=== PATIENT | female | born 1940 | race Caucasian/White ===

== ENCOUNTER 2017-07-08 07:30 | Day surgery (SDC) | payer MEDICARE, SELFPAY ==
[2017-06-25 15:13] VITALS: BMI 26.9
--- NOTE | 2017-07-08 | DI.US.S_ITS ---
ULTRASOUND GUIDED WIRE LOCALIZATION RIGHT BREAST WITH POST DIGITAL MAMMOGRAPHIC AND ULTRASOUND IMAGIN07/08/2017 CLINICAL: Pre-op wire localization. Correlation is made to exams dated: 06/15/2017 breast MRI, 05/22/2017 ultrasound biopsy, 05/22/2017 ultrasound biopsy, 05/22/2017 mammogram, and 05/06/2017 ultrasound [facility]. A wire localization using ultrasound guidance was performed for the marker clip located in the right breast at 2 o'clock anterior depth. This was described on the previous ultrasound report. The skin was prepped in the usual manner. Local anesthetic was administered to the access site. The localization was approached from the lateral aspect. A J-hook wire was inserted into the targeted area under ultrasound guidance. Post placement digital mammographic and ultrasound imaging was obtained. IMPRESSION: WIRE LOCALIZATION Wire localization for the marker clip in the right breast at 2 o'clock anterior depth was successful. This exam was interpreted at Station ID: [id number]. Luis F berry/:07/08/2017 10:18:08
--- NOTE | 2017-07-08 | PATH_ITS ---
[facility] Accession Number: [id number] . 01 Material submitted: . PART A: RIGHT BREAST SENTINEL NODES PART B: RIGHT BREAST PART C: RIGHT BREAST PART D: RIGHT BREAST PART E: RIGHT BREAST PART F: RIGHT BREAST . 02 Diagnosis: A. Right Breast, Clyman Nodes: Two lymph nodes negative for metastatic carcinoma. Biopsy site changes are present. Please see CAP summary data below. . B. Right Breast, Lumpectomy: Benign breast tissue. No evidence of atypical hyperplasia, in situ or invasive carcinoma. . C. Right Breast, Additional Posterior Margin: Benign breast tissue. Negative for atypical hyperplasia, in situ or invasive carcinoma. . D. Right Breast, Additional Inferior Margin: Benign breast tissue. Negative for atypical hyperplasia, in situ or invasive carcinoma. . E. Right Breast, Additional Superior Margin: Invasive ductal carcinoma. Please see CAP summary data below. . F. Right Breast, Additional Medial Margin: Benign breast tissue. Negative for atypical hyperplasia, in situ or invasive carcinoma. . CAP CANCER CASE SUMMARY: . PROCEDURE: Excision. SPECIMEN LATERALITY: Right. TUMOR SITE: Position 2 o'clock. TUMOR SIZE: 4 mm greatest dimension. . HISTOLOGIC TYPE: Invasive carcinoma of no special type (ductal, not otherwise specified). HISTOLOGIC GRADE: PAT HISTOLOGIC SCORE Glandular/Tubular differentiation: Score 2. Nuclear Pleomorphism: Score 2. Mitotic Rate: Score 1. Overall Grade: Grade 1. TUMOR FOCALITY: Single focus of invasive carcinoma. . DUCTAL CARCINOMA IN SITU: Not identified. . LOBULAR CARCINOMA IN SITU: No LCIS in specimen. . MARGINS: INVASIVE CARCINOMA MARGINS: Anterior: Positive for invasive carcinoma, 1 mm extent. Posterior: Negative, 5 mm. Superior: Negative, Greater than 10 mm. Inferior: Negative, Greater than 10 mm. Medial: Negative, Greater than 10 mm. Lateral: Negative, Greater than 10 mm. . . REGIONAL LYMPH NODES: Uninvolved by tumor cells. Number of Lymph Nodes Examined: 2. Number of Clyman Lymph Nodes Examined: 2. . TREATMENT EFFECT: No known presurgical therapy. . LYMPHOVASCULAR INVASION: Not identified. DERMAL LYMPHOVASCULAR INVASION: No skin present. . PATHOLOGIC STAGE CLASSIFICATION (AJCC 8th Edition, 2017) Primary Tumor: pT1a Regional Lymph Nodes: pN0(sn) . ADDITIONAL PATHOLOGIC FINDINGS: Specify: Biopsy site changes present in breast and lymph node. . MICROCALCIFICATIONS: Not identified. . ANCILLARY STUDIES: Prognostic markers performed previously on case [id number]: Estrogen Receptor (SP1): Strong positive, greater than 99%. Progesterone Receptor (1E2): Intermediate positive, approximately 50%. . HER2 (4B5), performed on the current specimen: Negative (Score 1+). I/07/14/2017 . 02 Electronically signed: . Stacie Ybarra MD, Pathologist NPI- [id number] . 01 Gross description: . A. The specimen is received in a container of formalin labeled with the patient's name and designated right breast sentinel node. The specimen consists of two rubbery pink-garcia lymph nodes covered with fat, the first measuring 1.5 x 1.3 x 0.6 cm and 2.7 x 1.5 x 1.3 cm. Sectioning of the larger lymph node reveals a third lymph node measuring 0.9 x 0.7 x 0.5 cm. The cut surfaces of all three lymph nodes are yellow-garcia and fatty with a narrow rim of outer pink-garcia tissue. The specimen is entirely submitted as A1 single lymph node; A2 single lymph node; A3-A4 one single node serially sectioned in two cassettes; A5 fat from lymph nodes. B. The specimen is received in a container of formalin labeled with the patient's name and designated breast lumpectomy with margins, short stitch superior, long stitch lateral, guidewire anterior margin. The specimen consists of a yellow-garcia fibrofatty lumpectomy. The specimen is oriented by sutures and guidewire as follows: long stitch lateral, short stitch superior, guidewire anterior. The superior margin will be painted with blue ink. The anterior margin will be painted with orange ink. The lateral margin will be painted with yellow ink. The posterior margin will be painted with black ink. The medial margin will be painted with red ink. The inferior margin will be painted with green ink. The specimen will be serially sectioned from anterior to posterior. Sectioning reveals a possible ill-defined 0.6 x 0.4 x 0.3 cm biopsy cavity, which appears to be closest to the lateral inferior medial margin. The margins are within 0.5-0.7 cm of the biopsy cavity. No residual tumor is grossly noted. The specimen consists of mostly yellow-garcia fatty tissue with a scant amount of fibrous tissue with a ratio of 98% fat and 2% fibrous breast tissue. The specimen is entirely submitted anterior to posterior in cassettes B1-B16 (cassette B13 possible biopsy site). Note to pathologist: entirely submitted because of ill-defined biopsy site. Fixation time less than 48 hours. C. The specimen is received in a container of formalin labeled with the patient's name and designated right breast lumpectomy, short stitch superior, long stitch lateral, double additional posterior margin. The specimen consists of an 11.5 grams, 4.5 x 3.5 x 1.5 cm, yellow-garcia lumpectomy specimen orientede by sutures, short superior, long lateral long lateral, double posterior margin. The superior margin is painted with blue ink. The anterior margin is painted with orange ink. The medial margin is painted with red ink. The lateral margin is painted with yellow ink. The inferior margin is painted with green ink. The posterior margin is painted with black ink. The specimen is serially sectioned from superior to inferior margin. Serial sections reveal a moderate amount of bright yellow lobulated fat with interlacing bands of white-garcia fibrous breast tissue with a ratio of 98% fat and 2% fibrous breast tissue. No other cysts or nodules are grossly noted. The specimen is entirely submitted from superior to inferior in cassette C1 through C15. D. The specimen is received in a container of formalin labeled with the patient's name and designated right breast lumpectomy, short stitch superior, long stitch lateral, double stitch additional inferior margin. The specimen consists of a bright yellow-garcia fibrofatty lumpectomy specimen oriented by sutures, short suture superior, long lateral, double stitch inferior margin. The specimen consists of a 5.0 x 3.5 x 1.0 cm yellow-garcia fibrofatty lumpectomy specimen. There is a small amount of muscle near the inferior deep margin. The lumpectomy specimen weighs 8.5 grams. The superior margin is painted with blue ink. The specimen is serially sectioned from superior to inferior Sectioning reveal a moderate amount of bright yellow lobulated fat with interlacing bands of white-garcia fibrous breast tissue with a ratio of 98% fat and 2% fibrous breast tissue. No distinct cysts or nodules are grossly noted. The specimen is entirely submitted superior to inferior as D1 through D12. E. The specimen is received in a container of formalin labeled with the patient's name and designated right breast lumpectomy tissue, short stitch superior, long lateral, and double stitch additional superior margin. The specimen consists of a yellow-garcia fibrofatty lumpectomy specimen made oriented by sutures, short stitch superior, long lateral and double stitch. The specimen consists of a 4.0 x 3.5 x 1.3 cm yellow-garcia fibrofatty lumpectomy specimen. The specimen weighs 8 grams. The superior margin will be painted with blue ink. The lateral margin will be painted with yellow ink. The anterior margin will be painted with orange ink. The inferior margin will be painted with green ink. The medial margin will be painted with red ink. The posterior margin will be painted with black ink. The specimen will be serially sectioned from medial to lateral. Sectioning reveals a moderate amount of bright yellow lobulated fat with interlacing bands of white-garcia fibrous breast tissue, with a ratio of 98% fat and 2% fibrous breast tissue. No distinct cysts or nodules are grossly noted. The specimen is entirely submitted medial to lateral in cassette E1 through E9. F. The specimen is received in a container of formalin labeled with the patient's name and designated right breast lumpectomy, short stitch superior, long=lateral, double=additional medial tissue. The specimen consists of a 6 gram, 3.2 x 2.5 x 1.1 cm yellow-garcia fibrofatty lumpectomy specimen oriented by sutures. The superior margin will be painted with blue ink. The posterior deep margin will be painted with black ink. The anterior margin will be painted with orange ink. The lateral margin will be painted with yellow ink. The medial margin will be painted with red ink. The inferior margin will be painted with green ink. The specimen is serially sectioned from superior to inferior. Sectioning reveals a moderate amount of bright yellow lobulated fat with interlacing bands of white-garcia fibrous breast tissue with a ratio of 98% fat and 2% fibrous breast tissue. No distinct cysts or nodules are grossly noted. The specimen is entirely submitted in cassettes F1 through F7, superior to inferior. (CW:[id number]) /[facility] . 02 Microscopic: . Immunohistochemical stains were performed to characterize the cells of interest. All control stains showed appropriate reactivity. . RESULTS: Blocks A1, A3, A4: Cytokeratin ERIN: Negative in all three blocks. . Block E3: HER2 (4B5): Negative (Score 1+). . INTERPRETATION: The lymph node sections are negative for micrometastasis by IHC. . TECHNICAL NOTE: The scoring criteria for breast biomarkers by immunohistochemistry is based on the current ASCO/CAP guidelines (Sharon et al, Arch Pathol Lab Med 2010: 134(6): 907-922 / Jenifer PEDRAZA et al, Arch Pathol Lab Med 2014: 138(2): 241-256). Deparaffinized sections of formalin fixed tissue (along with appropriate positive controls) are incubated with the above antibody(s). Using the automated Rivanna stainer, tissue is incubated with the designated antibody* which is then localized by a non-biotin, dual polymer detection system. The external controls are reviewed for appropriate reactivity and found to be adequate. Results on the target cell population are indicated above. These tests have not been validated on decalcified tissue. * This test was developed and its performance characteristics determined by [facility]. It has not been cleared or approved by the U.S. Food and Drug Administration. The FDA has determined that such clearance or approval is not necessary. This test is used for clinical purposes. It should not be regarded as investigational or for research. . 02 Pathologist provided ICD-10: C50.911 . 02 CPT . 574195, 163788, 348920, 408275, 504113, 101282, X35800 Performed at: 01 [facility] [address] [facility], [place], [place] [id number] MD Obed Calvillo MD Phone: [phone] Performed at: 02 [facility] [address] [place] [id number] MD Michael Hunter MD Phone: [phone]
--- NOTE | 2017-07-08 | DI.MG.S_ITS ---
SPECIMEN: 07/08/2017 CLINICAL: Right breast cancer. Correlation is made to exam dated: 07/08/2017 [facility]. Four surgical specimens were submitted. The first contained the localizing wire. The fourth was in two parts, one of which contains the mass at B4-5 on the grid. The bx clip was not present an any of the specimens. IMPRESSION: SPECIMEN Surgical specimens did contain the mass lesion. The bx clip was not recovered. Calls were made to the OR after each specimen was reviewed. This exam was interpreted at Station ID: [id number]. Luis F berry/:07/08/2017 12:27:20
--- NOTE | 2017-07-08 | DI.MG.S_ITS ---
UNILATERAL RIGHT DIGITAL DIAGNOSTIC MAMMOGRAM POST-NEEDLE BIOPSY: 07/08/2017 CLINICAL: Right breast cancer. Comparison is made to exams dated: 06/15/2017 breast MRI, 05/22/2017 ultrasound biopsy, and 05/22/2017 mammogram - [facility]. The tissue of the right breast is heterogeneously dense. This may lower the sensitivity of mammography. There is a bx clip in the right breast at 2 o'clock anterior depth. A localizing wire is adjacent to the clip, 1 cm proximal to a small mass. IMPRESSION: KNOWN BIOPSY PROVEN MALIGNANCY The localization wire is present adjacent to the bx clip and 1 cm proximal to the residual mass. This exam was interpreted at Station ID: [id number]. NOTE: For mammograms, a report in lay terms will be sent to the patient. Approximately 15% of breast malignancies will not be visualized mammographically. In the management of a palpable breast mass, a negative mammogram must not discourage biopsy of a clinically suspicious lesion. Electronically Signed By: Luis F berry/:07/08/2017 09:48:15 ACR BI-RADS Category 6: Known biopsy proven malignancy [id number]
[2017-07-08 07:47] VITALS: BP 176/101; PULSE 63; RESP 17; TEMP 36.3; O2SAT 98; BMI 26.4
--- NOTE | 2017-07-08 08:00 | DI.NM.S_ITS ---
PROCEDURE: NM SENTINEL NODE W IMAGING RADIOPHARMACEUTICAL: 0.5-1.0 mCi Millipore filtered Tc-99m sulfur colloid. INDICATIONS: localization of sentinel node TECHNIQUE: The area around the nipple was prepped and draped in a sterile fashion. Tc-99m sulfur colloid was injected intra-dermally in the outer edge of the areola in the right breast. Images were obtained subsequently. A body contour outline was obtained. FINDINGS: There is/are a cluster lymph node(s) in the ipsilateral axilla, which is marked on the skin and the images for referring physician. IMPRESSION: Administration of radiotracer into the right breast periareolar region for intra-operative sentinel lymph node localization. Dictated by: Luis F Ga M.D. on 07/08/2017 at 9:31 Approved by: Luis F Ga M.D. on 07/08/2017 at 9:32
[2017-07-08] MEDS: LACTATED RINGERS 1,000 ML 42 ML IV (10:06)
--- NOTE | 2017-07-08 10:29 | PM.PREOP ---
Pre-operative Note Interval Note Pre-op Check: History & Physical Reviewed by Physician
[2017-07-08] MEDS: CEFAZOLIN 2 GM/100 ML FROZ.PIGGY IV (10:35)
[2017-07-08] MEDS: BUPIVACAINE 0.5% (PF) 30 ML VIAL INJ (11:10)
--- NOTE | 2017-07-08 11:21 | SUR.OPER ---
SENTNEL NODE COUNTS RECORDED 6044 AND 2ND COUNT 97081 AND GIVEN TO SURGEON.
--- NOTE | 2017-07-08 12:21 | PM.OP.1 ---
Operative Date/Time/Diagnoses - Date of procedure: 07/08/17 Time of procedure: 12:21 Post-op diagnosis: same Procedure & Clinicians Procedure: Right breast lumpectomy and sentinel node biopsy after needle localization and mapping Same procedure as scheduled: Yes Indications: Biopsy-proven right breast invasive malignancy Surgeon: Marie Perez Click Yes if Unassisted: Yes Anesthesia Type: General (Ahsaei) and Local Operative Notes Findings: Mass located in the superior extended margin portion. No clip identified Closure Type: primary Specimen(s): other (1. Lumpectomy with wire, 2. Posterior margin, 3. Inferior margin, 4. Superior margin, 5. Medial margin) Estimated Blood Loss (mL): 15 Blood products transfused: none Procedure in detail: After obtaining informed consent, the patient was brought to the operating room and placed in the supine position on the operating table. Following successful induction of general endotracheal anesthesia, appropriate padding of all bony prominences, and placement of appropriate monitors, the right chest and axilla were prepped and draped in the standard surgical fashion. A timeout was held per SCOAP protocol. 2.5 mLs of methylene blue were injected in the retroareolar space of the right breast. The breast was massaged for 5 minutes. We began with placement of a Port-A-Cath on the left side. A mixture of local anesthetics was infiltrated in the deltopectoral groove on the left side. The right subclavian vein was accessed via the Seldinger technique and a wire was gently placed into the vein. Fluoroscopy was used to verify position of the wire in the subclavian vein. We next created a pocket of approximately 2 cm inferior to the access site of the vein. This was checked for size and found to fit the port nicely. The included tunneling device was used to place the tubing and the pocket connecting it to the access site of the subclavian vein. The tubing was trimmed to an appropriate length and connected to the Port-A-Cath. The Port-A-Cath was sewn into place in the pocket using interrupted Prolene sutures. The pocket was closed in 2 layers. The dilator and introducer were then gently passed over the wire and into the subclavian vein. The wire and dilator were removed leaving only the introducer. The tubing was then placed in the introducer and the introducer removed per computer analyst's directions. The port was then flushed with saline solution and found to be functional and in good position. It was then hep-locked with 2000 units of heparin. We continued with a right sentinel node biopsy Following injection of a mixture of local anesthetics into the axillary fold on the right side, an incision was created and carried down through the skin and subcutaneous tissue to enter the axillary fat pad below. The sentinel node was identified with the help of the navigator. All afferent and efferent lymphatics and vasculature were ligated. The sentinel node was then liberated from the surrounding structures. It was noted to have a 10 second count of 6044. A 2nd sentinel node was identified just distal to the 1st with a 10 sec count of 17,212. The background in the axilla was less than 5 and background in the room was 0. The wound was carefully checked for hemostasis and aspirated free of all fluid and particulate matter. It was closed in 2 layers with Vicryl and Monocryl suture. We continued with lumpectomy on the right side. A curvilinear incision was created at the medial aspect of the right nipple-areolar complex. Using traction and counter-traction the mass and localizing wire carefully dissected free from the underlying muscle, and surrounding breast tissue. The mass was delivered into the field and marked appropriately. It was sent for specimen x-ray. The wound was checked for hemostasis and irrigated with water. The radiologist called back into the room noting that he did not see either the mass or the clip. Additional posterior, inferior, superior, and medial margins were all taken. The superior margin contained the mass but no clip was visualized in any of the tissue. The posterior margin was the pectoralis muscle with the fascia removed. Most of the upper inner quadrant of the right breast was removed. The wound was checked once again for hemostasis. It was irrigated copiously with warm water and aspirated free of all fluid. The wound was checked once again for hemostasis and then closed in layers with Vicryl Monocryl suture. Dermabond was applied to the skin incisions. Fluffs and a breast binder were applied. The patient tolerated the procedure very well. She was allowed to awaken from anesthesia and taken to the post-anesthesia care unit in good condition. Complications: none (No clip identified within the specimen) Condition: stable Disposition: PACU Plan for aftercare: 1. Discharge to home 2. Follow up with me in 2 weeks
[2017-07-08 12:27] VITALS: BP 144/77; PULSE 107; RESP 16; TEMP 35.7; O2SAT 95
[2017-07-08 12:32] VITALS: BP 118/76; PULSE 101; RESP 16; O2SAT 95
[2017-07-08 12:39] VITALS: BP 118/89; PULSE 92; RESP 15; O2SAT 97
[2017-07-08 12:43] VITALS: BP 125/91; PULSE 89; RESP 16; TEMP 36; O2SAT 96
[2017-07-08 13:10] VITALS: BP 143/83; PULSE 90; RESP 16; TEMP 36; O2SAT 97
[2017-07-27 14:46] VITALS: BMI 26.4
== END 2017-07-08 13:16 | disposition home or self-care (01) ==
PROVIDERS: Family Provider Family Medicine; PCP Family Medicine; Visit Provider Surgery
PROC: (CPT 19301; principal; 2017-07-08 11:45)
DX: C50.911 Malignant neoplasm of unspecified site of right female breast (principal); I44.7 Left bundle-branch block, unspecified; I10 Essential (primary) hypertension; Z17.0 Estrogen receptor positive status [ER+]; Z45.2 Encounter for adjustment and management of vascular access device
CPT/HCPCS: 19301; 38500; 36561; 19285; 76098; 77065; 78195; A9541; J0690; J1100; J2405; J2704; J3010

== ENCOUNTER 2017-07-29 07:58 | Day surgery (SDC) | payer MEDICARE, SELFPAY ==
[2017-07-27 14:49] VITALS: BMI 26.6
--- NOTE | 2017-07-29 | PATH_ITS ---
[facility] Accession Number: [id number] . 01 Material submitted: . RIGHT BREAST . 02 Diagnosis: Right Breast, Re-Excision: No residual carcinoma identified. No evidence of atypical hyperplasia or in-situ carcinoma. Changes consistent with prior procedure. Skeletal muscle present. JRL/07/31/2017 . 02 Electronically signed: . Stacie Ybarra MD, Pathologist NPI- [id number] . 01 Gross description: . Received in formalin, labeled re-excision right breast, S. superior, L. lateral, W anterior, is a piece of breast tissue (0.5 cm AP, 3.2 cm SI, 2.7 cm ML) with no overlying skin. The specimen is oriented with three black sutures (short-superior, long-lateral, double-anterior). No localization wire is present. The specimen is serially sectioned SI into ten slices with the superior and inferior resection margins as slices #1 and #10, respectively. The breast tissue is fatty and diffusely fibrous on the posterior margin. No biopsy marker is identified. No nodules, masses or lesions are identified. Ink code: purple-anterior; yellow-posterior; black-superior; orange-inferior; green-medial; blue-lateral. Section code: (A1) superior resection margin, perpendicularly sectioned; (A2) slice #2; (A3) slice #3; (A4) slice #4; (A5) slice #5; (A6) slice #6; (A7) slice #7; (A8) slice #8; (A9) slice #9; (A10) inferior resection margin, perpendicularly sectioned. Note: Approximate total fixation time in formalin-31 hours and 30 minutes calculated using a collection date of 07/29/2017 with no collection time given. ([id number]) /[facility] . 02 Pathologist provided ICD-10: C50.911 . 02 CPT . 164307 Performed at: 01 [facility] [address] [id number] MD Obed Calvillo MD Phone: [phone] Performed at: 02 [facility] [address] [place], [place] [id number] MD Michael Hunter MD Phone: [phone]
[2017-07-29 08:22] VITALS: BP 135/86; PULSE 94; RESP 18; TEMP 37; O2SAT 98; BMI 26.6
[2017-07-29] MEDS: CEFAZOLIN 1 GM VIAL IV (08:49)
--- NOTE | 2017-07-29 09:00 | PM.PREOP ---
Pre-operative Note Interval Note Pre-op Check: History & Physical Reviewed by Physician
--- NOTE | 2017-07-29 09:01 | SUR.OPER ---
Supine on padded OR bed, head on pillow, right arm padded and tucked at side, left arm extended less than 90 degrees on padded arm board. legs uncrossed, safety belt at thigh, tape over blanket over lower legs .
[2017-07-29] MEDS: BUPIVACAINE 0.5% (PF) 30 ML VIAL INJ (09:16)
[2017-07-29] MEDS: LIDOCAINE 1% W/EPI INJ 20 ML INJ (09:17)
[2017-07-29 09:30] VITALS: BP 103/64; BP 85/57; PULSE 87; PULSE 98; RESP 16; TEMP 36.3; O2SAT 97
[2017-07-29 09:35] VITALS: BP 101/66; PULSE 85; RESP 16; TEMP 36.5; O2SAT 97
--- NOTE | 2017-07-29 09:35 | PM.OP.1 ---
Operative Date/Time/Diagnoses - Date of procedure: 07/29/17 Time of procedure: 09:35 Pre-op diagnosis: Right breast cancer. Positive anterior margin after lumpectomy Post-op diagnosis: same Procedure & Clinicians Procedure: Re-excision of margins right breast Same procedure as scheduled: Yes Indications: Positive anterior margin after lumpectomy Surgeon: Marie Perez Anesthesia Type: General (Kotlarczyk) Operative Notes Findings: 1. Seroma cavity with a moderate amount of serosanguineous fluid. 2. Breast tissue removed to the level of the dermis anteriorly and to the level of the pectoralis muscle posteriorly Closure Type: primary Specimen(s): none sent (Anterior margin marked with a short stitch superior, long stitch lateral, and double stitch anterior) Estimated Blood Loss (mL): 10 Procedure in detail: After obtaining consent, the patient was taken to the operating room and placed in the supine position on the operating table. Following successful induction of general endotracheal anesthesia, appropriate padding of all bony prominences, and placement of appropriate monitors, the right breast is prepped and draped in a standard surgical fashion. A time-out was held per SCOAP protocol. Following infiltration with local anesthetic to create a field block, the existing periareolar incision on the medial aspect of the nipple. This was carried down through the skin and subcutaneous tissue to enter the seroma cavity. A small amount of serosanguineous fluid was aspirated from the seroma cavity. The superior aspect of the cavity in the anterior margin were then identified and grasped with an Allis forceps. The entire margin was removed sharply and marked for orientation. The wound was checked for hemostasis and irrigated with warm water. An additional amount of local anesthetic was infiltrated into the cavity to provide anesthesia. The wound was checked for hemostasis once again and closed in 2 layers with Vicryl and Monocryl sutures. All sponge, needle, and instrument counts were correct at the conclusion of case. Patient was allowed to wake from anesthesia without difficulty and taken to the post anesthesia care unit in good condition. Complications: none Condition: stable Disposition: PACU Plan for aftercare: 1. Discharge to home 2. Follow up with me in 2 weeks.
[2017-07-29 09:50] VITALS: BP 119/75; PULSE 85; RESP 16; TEMP 36.5; O2SAT 96
== END 2017-07-29 10:03 | disposition home or self-care (01) ==
PROVIDERS: Family Provider Family Medicine; PCP Family Medicine; Visit Provider Surgery
PROC: (CPT 19301; principal; 2017-07-29 08:45)
DX: L76.34 Postprocedural seroma of skin and subcutaneous tissue following other procedure (principal); Z79.84 Long term (current) use of oral hypoglycemic drugs; E78.00 Pure hypercholesterolemia, unspecified; I44.7 Left bundle-branch block, unspecified
CPT/HCPCS: 19301; J0690; J1100; J2405; J2704; J3010

== ENCOUNTER → 2017-08-25 13:14 | Outpatient (CLI) | payer MEDICARE, SELFPAY | PROVIDERS: PCP Family Medicine; Visit Provider Internal Medicine Hematology & Oncology | DX: M81.0 Age-related osteoporosis without current pathological fracture (principal); Z78.0 Asymptomatic menopausal state; Z87.891 Personal history of nicotine dependence; C50.919 Malignant neoplasm of unspecified site of unspecified female breast | CPT/HCPCS: 77080 ==

== ENCOUNTER → 2017-11-11 09:48 | Outpatient (CLI) | payer MEDICARE, SELFPAY ==
[2017-11-11 10:24] LABS: Add Manual Diff / Slide Review NO; Basophils Percent Auto 0.6 % (0-2); Eosinophils Percent Auto 0.6 % (2-4); Hematocrit 41.4 % (36-46); Hemoglobin 14.5 g/dL (12.0-16.0); Lymphocytes Percent Auto 4.1 % (25-40); Mean Corpuscular HGB Conc 35.1 % (30-36); Mean Corpuscular Hemoglobin 30.9 PG (26-34); Mean Corpuscular Volume 88.1 fL (80-100); Neutrophils Absolute Auto 8600 /uL (3000-5900); Neutrophils Percent Auto 86.7 % (50-75); Platelet Count 291 X10^3/uL (150-400); Red Blood Cell Count 4.69 X10^6/uL (4.0-5.2); Red Cell Distribution Width 12.8 % (11.6-14.8); White Blood Cell Count 9.9 X10^3/uL (4.5-11.0)
[2017-11-11 10:49] LABS: Alanine Aminotransferase 26 IU/L (9-52); Albumin 4.6 g/dL (3.5-5.0); Albumin Globulin Ratio 1.5 (1.0-2.8); Alkaline Phosphatase 87 U/L (38-126); Aspartate Aminotransferase 22 IU/L (14-36); BUN Creatinine Ratio 13.8 (6-22); Bilirubin Total 0.5 mg/dL (0.2-1.3); Blood Urea Nitrogen 11 mg/dL (7-17); Calcium 10.3 mg/dL (8.4-10.2); Carbon Dioxide 30 mmol/L (22-32); Chloride 103 mmol/L (98-107); Estimated Glomerular Filt Rate > 60.0 mL/min (>60); Glucose 115 mg/dL (80-110); HEMOLYSIS < 15 (0-50); Potassium 4.6 mmol/L (3.4-5.1); Sodium 144 mmol/L (137-145); Total Protein 7.6 g/dL (6.3-8.2)
--- NOTE | 2017-11-11 11:09 | DI.CT.S_ITS ---
PROCEDURE: CT ABDOMEN PELVIS W CON INDICATIONS: LLQ pain TECHNIQUE: After the administration of oral and intravenous contrast, 5 mm thick sections acquired from the diaphragms to the symphysis. 5 mm thick coronal and sagittal reformats were performed. For radiation dose reduction, the following was used: automated exposure control, adjustment of mA and/or kV according to patient size. COMPARISON: [facility], US, BREAST UNILATERAL LIMITED, 05/06/2017, 13:52. [facility], , ADDITIONAL 1 VIEW, 05/06/2017, 13:32. [facility], BILATERAL SCREENING MAMMOGRAM, 04/22/2017, 13:51. [facility], CT, CT ZHENG, 08/27/2017, 15:18. FINDINGS: Image quality: Excellent. ABDOMEN: Lung bases: Lung bases are clear. Heart size is normal. There is a small fat containing left diaphragmatic hernia. Patient is likely status post partial right hepatic lobectomy. Multiple large hepatic cysts are visualized, one of which demonstrate intermediate density. Scattered calcifications are present within the rim of these hepatic cystic lesions. Multiple smaller cysts and a 6.0 cm in diameter cyst are present within the left hepatic lobe. Gallbladder is unremarkable. Biliary system is non-dilated. Pancreas enhances normally. Spleen is normal in size and enhancement. No adrenal nodules. Kidneys are normal in size and enhancement, without hydronephrosis. Peritoneum and bowel: Stomach, small bowel, and colon loops are normal in caliber and wall thickness. The appendix is not visualized; however there is no discrete right lower quadrant fluid or fat stranding to suggest acute appendicitis. There are diffuse diverticular outpouchings throughout the sigmoid colon. There is focal circumferential sigmoid colon wall thickening and extensive pericolonic fat stranding consistent with acute diverticulitis. No pneumoperitoneum or discrete fluid collections to suggest abscess. Nodes and vessels: No retroperitoneal or mesenteric adenopathy. Aorta and inferior vena cava are normal in caliber. Miscellaneous: No ventral hernias. PELVIS: Genitourinary: Bladder wall thickness is normal. Uterus and ovaries are grossly unremarkable. There is engorgement of the left gonadal vein. Miscellaneous: No inguinal hernias or adenopathy. Bones: No suspicious bony lesions. No vertebral body compression fractures. IMPRESSION: 1. Acute diverticulitis as above. No findings to suggest pneumoperitoneum or abscess formation at this time. This finding was discussed with YAKOV Kaplan at 11:54 AM on 11/11/17. 2. Engorged left gonadal veins suggesting pelvic congestion syndrome. Please correlate clinically. 3. Multiple large hepatic cystic lesions with rim calcifications, one of which demonstrates intermediate density. Dictated by: Leslye Sheppard M.D. on 11/11/2017 at 11:40 Approved by: Leslye Sheppard M.D. on 11/11/2017 at 11:54
== END ==
PROVIDERS: PCP Family Medicine; Visit Provider Family Medicine
DX: R10.32 Left lower quadrant pain (principal)
CPT/HCPCS: 36415; 74177; 80053; 85025; Q9967

== ENCOUNTER 2017-11-24 09:13 | Day surgery (SDC) | payer MEDICARE, SELFPAY ==
[2017-11-24] MEDS: PROPARACAINE 0.5% OPHTH SOL 2 DROPS EYE-OP (10:45)
[2017-11-24 10:46] VITALS: BP 164/93; PULSE 86; RESP 16; TEMP 36.1; O2SAT 98; BMI 26.4
[2017-11-24] MEDS: CATARACT EYE COMPOUND (10 DROPS/SYRINGE) 3 DROPS EYE-OP (10:50)
--- NOTE | 2017-11-24 11:34 | PM.PREOP ---
Pre-operative Note Interval Note Changes: No
--- NOTE | 2017-11-24 11:35 | P.OP.PRE_ITS ---
Pre-operative Note Interval Note Changes: No
--- NOTE | 2017-11-24 11:35 | P.OP_ITS ---
Operative Date/Time/Diagnoses Pre-op diagnosis: Nuclear cataract right eye Procedure & Clinicians Procedure: Cataract Surgery Same procedure as scheduled: Yes Surgeon: Homero Vasquez Anesthesia Type: MAC +/- and Sedation Operative Notes Procedure in detail: Patient brought to the operating suite. Tetracaine drops placed in the right eye. Patient was prepped and draped in sterile manner. Wire lid speculum was placed in the eye. Betadine drops were placed on the eye. This was irrigated. Lidocaine jelly was placed on the eye. A paracentesis port was created with a side-port blade. 0.1 mL 1% preservative free lidocaine was injected into the anterior chamber. The anterior chamber was deepened with viscoelastic. 2.6 mm keratome was used to create a temporal clear corneal incision. Cystotome and Utrata forceps were used to create continuous tear capsulorrhexis. Balanced salt solution was used to hydro dissect the nucleus. The phacoemulsification handpiece was inserted and the nucleus was removed using the stop and chop technique. The irrigation aspiration handpiece was inserted and the remaining cortex was removed. Anterior chamber was deepened with viscoelastic. An Zhang ZCB00 intraocular lens with a power of 16.5 was injected into the capsular bag. Irrigation aspiration handpiece was inserted and the remaining viscoelastic was removed. Incision was hydrated with balanced salt solution and found to be leak free with pressure with Weck- Esha sponges. 0.1 mL Vigamox injected anterior chamber. 0.3 mL Kenalog 10 mg was injected subconjunctivally. Lid speculum was removed. The patient left the operating room in excellent condition. Complications: none Condition: stable Disposition: same day surgery
[2017-11-24] MEDS: PHENYLEPHRINE/LIDOCAINE VIAL (OR) 0.2 ML EYE-OP (11:52)
[2017-11-24] MEDS: TRIAMCINOLONE 50 MG/5 ML VIAL INJ (11:53)
[2017-11-24] MEDS: MOXIFLOXACIN OPHTH DROPS 3 ML BOTTLE 2 DROPS INJ (11:53)
[2017-11-24] MEDS: CHONDROIDTIN/SOD HYALURONATE 1.05 ML SYRINGE INTRAOCULA (11:53)
[2017-11-24] MEDS: LIDOCAINE JELLY 2% 5 ML 1 APPLIC TOP (11:53)
[2017-11-24] MEDS: TETRACAINE 0.5% OPHTH DROPS 15 ML 2 DROPS EYE-RIGHT (11:54)
[2017-11-24] MEDS: BALANCED SALT IRRIG SOLN NO.2 500 ML, EPINEPHrine 1 MG IRR (11:54)
[2017-11-24 12:04] VITALS: BP 109/76; PULSE 83; RESP 17; TEMP 36.3; O2SAT 96
== END 2017-11-24 12:12 ==
LOC: OR 09:14
PROVIDERS: PCP Family Medicine; Visit Provider Ophthalmology
DX: H25.11 Age-related nuclear cataract, right eye (principal)
CPT/HCPCS: J0171; J2250; J3010; J3301

== ENCOUNTER → 2017-12-04 09:04 | Outpatient (CLI) | payer MEDICARE, SELFPAY ==
[2017-12-04 10:12] LABS: Add Manual Diff / Slide Review NO; Basophils Percent Auto 0.8 % (0-2); Hematocrit 41.7 % (36-46); Lymphocytes Percent Auto 13.3 % (25-40); Mean Corpuscular HGB Conc 33.6 % (30-36); Mean Corpuscular Hemoglobin 30.3 PG (26-34); Mean Corpuscular Volume 90.2 fL (80-100); Monocytes Percent Auto 11.5 % (3-14); Neutrophils Absolute Auto 2800 /uL (3000-5900); Neutrophils Percent Auto 69.4 % (50-75); Platelet Count 241 X10^3/uL (150-400); Red Blood Cell Count 4.63 X10^6/uL (4.0-5.2); Red Cell Distribution Width 13.7 % (11.6-14.8)
[2017-12-04 10:30] LABS: Alanine Aminotransferase 56 IU/L (9-52); Albumin 4.3 g/dL (3.5-5.0); Albumin Globulin Ratio 1.5 (1.0-2.8); Alkaline Phosphatase 63 U/L (38-126); Aspartate Aminotransferase 172 IU/L (14-36); BUN Creatinine Ratio 13.8 (6-22); Bilirubin Total 0.4 mg/dL (0.2-1.3); Blood Urea Nitrogen 11 mg/dL (7-17); Calcium 9.2 mg/dL (8.4-10.2); Carbon Dioxide 29 mmol/L (22-32); Chloride 105 mmol/L (98-107); Cholesterol 309 mg/dL (140-199); Estimated Glomerular Filt Rate > 60.0 mL/min (>60); Globulin 2.9 g/dL (1.7-4.1); Glucose 92 mg/dL (80-110); HDL Cholesterol 53 mg/dL (40-60); HEMOLYSIS < 15 (0-50); LDL Cholesterol Calculated 234 mg/dL (<100); Potassium 4.3 mmol/L (3.4-5.1); Sodium 144 mmol/L (137-145); Total Protein 7.2 g/dL (6.3-8.2); Triglycerides 110 mg/dL (35-150)
[2017-12-04 10:56] LABS: TSH w/ Reflex to FT4 1.85 uIU/mL (0.47-4.68)
== END ==
PROVIDERS: PCP Family Medicine; Visit Provider Family Medicine
DX: E78.5 Hyperlipidemia, unspecified (principal); I10 Essential (primary) hypertension
CPT/HCPCS: 36415; 80053; 80061; 84443; 85025

== ENCOUNTER 2017-12-08 09:21 | Day surgery (SDC) | payer MEDICARE, SELFPAY ==
[2017-12-08 09:48] VITALS: BP 165/93; PULSE 92; RESP 16; TEMP 36.6; O2SAT 97; BMI 26.4
[2017-12-08] MEDS: PROPARACAINE 0.5% OPHTH SOL 2 DROPS EYE-OP (09:59)
[2017-12-08] MEDS: CATARACT EYE COMPOUND (10 DROPS/SYRINGE) 3 DROPS EYE-OP (10:00)
--- NOTE | 2017-12-08 10:53 | PM.PREOP ---
Pre-operative Note Interval Note Changes: No
--- NOTE | 2017-12-08 10:54 | P.OP.PRE_ITS ---
Pre-operative Note Interval Note Changes: No
--- NOTE | 2017-12-08 10:55 | P.OP_ITS ---
Operative Date/Time/Diagnoses Pre-op diagnosis: Nuclear Cataract Left eye Post-op diagnosis: same Procedure & Clinicians Surgeon: Homero Vasquez Anesthesia Type: MAC +/- and Sedation Operative Notes Procedure in detail: Patient brought to the operating suite. Tetracaine drops placed in the left eye. Patient was prepped and draped in sterile manner. Wire lid speculum was placed in the eye. Betadine drops were placed on the eye. This was irrigated. Lidocaine jelly was placed on the eye. A paracentesis port was created with a side-port blade. 0.1 mL 1% preservative free lidocaine was injected into the anterior chamber. The anterior chamber was deepened with viscoelastic. 2.6 mm keratome was used to create a temporal clear corneal incision. Cystotome and Utrata forceps were used to create continuous tear capsulorrhexis. Balanced salt solution was used to hydro dissect the nucleus. The phacoemulsification handpiece was inserted and the nucleus was removed using the stop and chop technique. The irrigation aspiration handpiece was inserted and the remaining cortex was removed. Anterior chamber was deepened with viscoelastic. An Zhang ZCB00 intraocular lens with a power of 17.5 was injected into the capsular bag. Irrigation aspiration handpiece was inserted and the remaining viscoelastic was removed. Incision was hydrated with balanced salt solution and found to be leak free with pressure with Weck- Esha sponges. 0.1 mL Vigamox injected anterior chamber. 0.3 mL Kenalog 10 mg was injected subconjunctivally. Lid speculum was removed. The patient left the operating room in excellent condition. Complications: none Condition: stable Disposition: same day surgery
--- NOTE | 2017-12-08 11:01 | SUR.OPER ---
Supine on eye stretcher, head on extension cradle secured with tape. Arms tucked at sides with blanket. Pillow under knees.
[2017-12-08] MEDS: LIDOCAINE JELLY 2% 5 ML 1 APPLIC TOP (11:03)
[2017-12-08] MEDS: MOXIFLOXACIN OPHTH DROPS 3 ML BOTTLE 2 DROPS INJ (11:03)
[2017-12-08] MEDS: CHONDROIDTIN/SOD HYALURONATE 1.05 ML SYRINGE INTRAOCULA (11:03)
[2017-12-08] MEDS: TETRACAINE 0.5% OPHTH DROPS 15 ML 2 DROPS EYE-LEFT (11:04)
[2017-12-08] MEDS: TRIAMCINOLONE 50 MG/5 ML VIAL INJ (11:04)
[2017-12-08] MEDS: PHENYLEPHRINE/LIDOCAINE VIAL (OR) 0.2 ML EYE-OP (11:04)
[2017-12-08] MEDS: BALANCED SALT IRRIG SOLN NO.2 500 ML, EPINEPHrine 1 MG IRR (11:05)
[2017-12-08 11:17] VITALS: BP 114/74; PULSE 82; RESP 16; TEMP 36.2; O2SAT 96
== END 2017-12-08 11:25 | disposition home or self-care (01) ==
LOC: OR 09:22
PROVIDERS: PCP Family Medicine; Visit Provider Ophthalmology
DX: H25.12 Age-related nuclear cataract, left eye (principal)
CPT/HCPCS: J0171; J2250; J3010; J3301

== ENCOUNTER → 2017-12-09 08:12 | Outpatient (CLI) | payer MEDICARE, SELFPAY ==
[2017-12-11 08:46] LABS: Hepatitis A Antibody IgM NONREACTIVE (NONREACTIVE); Hepatitis Acute Panel Interp 0.01 (NONREACTIVE); Hepatitis B Core Antibody IgM NONREACTIVE (NONREACTIVE); Hepatitis B Surface Antigen NONREACTIVE (NONREACTIVE); Hepatitis C Antibody NONREACTIVE
== END ==
PROVIDERS: PCP Family Medicine; Visit Provider Family Medicine
DX: K76.89 Other specified diseases of liver (principal)
CPT/HCPCS: 36415; 80074

== ENCOUNTER → 2017-12-24 11:44 | Outpatient (CLI) | payer MEDICARE, SELFPAY ==
[2017-12-24 12:27] LABS: Alanine Aminotransferase 24 IU/L (9-52); Albumin 4.3 g/dL (3.5-5.0); Albumin Globulin Ratio 1.4 (1.0-2.8); Alkaline Phosphatase 66 U/L (38-126); Aspartate Aminotransferase 26 IU/L (14-36); Bilirubin Total 0.5 mg/dL (0.2-1.3); Blood Urea Nitrogen 12 mg/dL (7-17); Calcium 9.4 mg/dL (8.4-10.2); Carbon Dioxide 28 mmol/L (22-32); Chloride 103 mmol/L (98-107); Estimated Glomerular Filt Rate > 60.0 mL/min (>60); Glucose 94 mg/dL (80-110); HEMOLYSIS < 15 (0-50); Potassium 4.2 mmol/L (3.4-5.1); Sodium 143 mmol/L (137-145); Total Protein 7.3 g/dL (6.3-8.2)
== END ==
PROVIDERS: PCP Family Medicine; Visit Provider Family Medicine
DX: R94.5 Abnormal results of liver function studies (principal)
CPT/HCPCS: 36415; 80053

== ENCOUNTER → 2018-04-26 10:21 | Outpatient (CLI) | payer MEDICARE, SELFPAY ==
--- NOTE | 2018-04-26 10:22 | DI.MG.S_ITS ---
BILATERAL DIGITAL DIAGNOSTIC MAMMOGRAM 3D/2D POST LUMPECTOMY: 04/26/2018 CLINICAL: Personal history of breast cancer. Comparison is made to exams dated: 07/08/2017 mammogram, 05/22/2017 mammogram, 05/06/2017 mammogram, 04/22/2017 mammogram, 04/21/2016 mammogram, and 08/06/2015 mammogram - [facility]. The tissue of both breasts is heterogeneously dense. This may lower the sensitivity of mammography. There is new post surgical change in the central right breast including architectural distortion, surgical clips, skin and nipple retraction, and trabecular thickening. No suspicous densitiy. Small scar is also seen in the right axilla. No other significant masses, calcifications, or other findings are seen in either breast. IMPRESSION: Expected post surgical changes in the right breast following lumpectomy. There is no mammographic evidence of malignancy. Continue screening mammography at providers recommended interval. Findings conveyed to the patient. This exam was interpreted at Station ID: [id number]. NOTE: For mammograms, a report in lay terms will be sent to the patient. Approximately 15% of breast malignancies will not be visualized mammographically. In the management of a palpable breast mass, a negative mammogram must not discourage biopsy of a clinically suspicious lesion. Electronically Signed By: Shana rodrigues/:04/26/2018 12:47:49 copy to: Shruthi Leonard letter sent: Clinical Evaluation ACR BI-RADS Category 2: Benign Finding(s) 3342F
== END ==
PROVIDERS: Family Provider Family Medicine; PCP Family Medicine
DX: R92.8 Other abnormal and inconclusive findings on diagnostic imaging of breast (principal); C50.911 Malignant neoplasm of unspecified site of right female breast
CPT/HCPCS: 77066; G0279

== ENCOUNTER → 2018-12-17 08:12 | Outpatient (CLI) | payer MEDICARE, SELFPAY ==
[2018-12-17 08:56] LABS: Add Manual Diff / Slide Review NO; Basophils Absolute Auto 0 /uL (0-100); Basophils Percent Auto 0.8 % (0-2); Eosinophils Absolute Auto 100 /uL (0-450); Eosinophils Percent Auto 3.1 % (2-4); Hematocrit 43.4 % (36-46); Hemoglobin 14.8 g/dL (12.0-16.0); Lymphocytes Absolute Auto 700 /uL (1100-4500); Lymphocytes Percent Auto 16.7 % (25-40); Mean Corpuscular HGB Conc 34.1 % (30-36); Mean Corpuscular Hemoglobin 30.8 PG (26-34); Mean Corpuscular Volume 90.3 fL (80-100); Monocytes Absolute Auto 500 /uL (0-900); Monocytes Percent Auto 10.5 % (3-14); Neutrophils Absolute Auto 3000 /uL (1500-7000); Neutrophils Percent Auto 68.9 % (50-75); Platelet Count 273 X10^3/uL (150-400); Red Blood Cell Count 4.81 X10^6/uL (4.0-5.2); Red Cell Distribution Width 13.6 % (11.6-14.8); White Blood Cell Count 4.4 X10^3/uL (4.5-11.0)
[2018-12-17 09:15] LABS: Alanine Aminotransferase 16 IU/L (<35); Albumin 4.7 g/dL (3.5-5.0); Albumin Globulin Ratio 1.4 (1.0-2.8); Alkaline Phosphatase 69 U/L (38-126); Aspartate Aminotransferase 35 IU/L (14-36); BUN Creatinine Ratio 22.5 (6-22); Bilirubin Total 0.9 mg/dL (0.2-1.3); Blood Urea Nitrogen 18 mg/dL (7-17); Calcium 9.3 mg/dL (8.4-10.2); Carbon Dioxide 27 mmol/L (22-32); Chloride 102 mmol/L (98-107); Estimated Glomerular Filt Rate > 60.0 mL/min (>60); Globulin 3.3 g/dL (1.7-4.1); Glucose 88 mg/dL (80-110); HDL Cholesterol 55 mg/dL (40-60); Potassium 4.3 mmol/L (3.4-5.1); Sodium 138 mmol/L (137-145); Triglycerides 148 mg/dL (35-150)
[2018-12-17 09:24] LABS: Cholesterol 341 mg/dL (140-199); HEMOLYSIS 59 (0-50); LDL Cholesterol Calculated 256 mg/dL (<100)
== END ==
PROVIDERS: PCP Family Medicine; Visit Provider Family Medicine
DX: Z13.6 Encounter for screening for cardiovascular disorders (principal); E78.5 Hyperlipidemia, unspecified; I10 Essential (primary) hypertension
CPT/HCPCS: 36415; 80053; 80061; 85025

== ENCOUNTER → 2019-03-04 10:02 | Outpatient (CLI) | payer MEDICARE, SELFPAY ==
[2019-03-04 11:07] LABS: BUN Creatinine Ratio 17.5 (6-22); Blood Urea Nitrogen 14 mg/dL (7-17); Calcium 9.8 mg/dL (8.4-10.2); Carbon Dioxide 27 mmol/L (22-32); Chloride 103 mmol/L (98-107); Estimated Glomerular Filt Rate > 60.0 mL/min (>60); Glucose 107 mg/dL (80-110); HEMOLYSIS < 15 (0-50); Potassium 4.1 mmol/L (3.4-5.1); Sodium 141 mmol/L (137-145)
[2019-03-04 11:33] LABS: Vitamin D 25 Hydroxy (D3) 54.8 ng/mL (30.0-100.0)
== END ==
PROVIDERS: PCP Family Medicine; Visit Provider Family Medicine
DX: M81.0 Age-related osteoporosis without current pathological fracture (principal); I10 Essential (primary) hypertension
CPT/HCPCS: 36415; 80048; 82306

== ENCOUNTER 2019-04-05 12:28 | Day surgery (SDC) | payer MEDICARE, SELFPAY ==
--- NOTE | 2019-04-05 | PATH_ITS ---
[facility] Accession Number: [id number] . 01 Material submitted: . cecum - CECAL COLON POLYP . 02 Diagnosis: Cecum, Polyp: Sessile serrated adenoma. MRV 04/06/2019 1000 Local . 02 Electronically signed: . Korey Jewell MD, PhD, Pathologist NPI- [id number] . 01 Gross description: . CECAL COLON POLYP: Received in formalin is 1 fragment(s) of garcia, soft tissue measuring 0.3 x 0.3 x 0.3 cm submitted entirely in 1 cassette(s) /[facility] 04/05/2019 1943 Local . 02 Pathologist provided ICD-10: D12.0 . 02 CPT . 918444 Performed at: 01 [facility] [address] [place] [address], [place], [place] [id number] MD Obed Calvillo MD Phone: [phone] Performed at: 02 [facility] [address] [place], [place] [id number] MD Stacie Ybarra MD Phone: [phone]
[2019-04-05 13:22] VITALS: BP 149/90; PULSE 96; RESP 15; TEMP 36.8; O2SAT 100; BMI 25.7
[2019-04-05] MEDS: SODIUM CHLORIDE 0.9% 1,000 ML 200 ML IV (13:27)
--- NOTE | 2019-04-05 13:35 | P.HP_ITS ---
History of Present Illness History of Present Illness Date Patient Seen: 04/05/19 Time Patient Seen: 13:35 Chief complaint: [id number] Narrative: This is a 79-year-old woman with history of breast cancer, hypertension, left bundle branch block, diverticulosis, diverticulitis, personal history of colon polyps. She comes in for a follow-up surveillance colonoscopy. Her last colonoscopy was about 6 years ago. Some polyps were found, and were benign. She denies any intervening history of hematochezia, melena, unexplained abdominal pain, unexplained weight loss. ROS: Review of systems positive for headaches, negative for recent cold symptoms, negative for chest pain, negative for shortness of breath. Thirteen system review is otherwise negative other than as mentioned below and in HPI. PE: GENERAL: Well groomed and cooperative. Appears stated age. Answers questions promptly and appropriately. Vital signs noted. HENT: Normocephalic, atraumatic. Hearing intact. Oral mucosa is pink and moist. EYES: Conjunctiva pink, sclera white, no periorbital swelling. CARDIOVASCULAR: Regular rate. No pedal edema. RESPIRATORY: Non-tachypneic, breathing comfortably on room air. GASTROINTESTINAL: Abdomen soft and non-distended GENITALURINARY: No flank tenderness. MUSCULOSKELETAL: Equal tone and mass bilaterally. SKIN: Warm, dry, soft, appropriate color for ethnicity. No other lesions, rashes, or wounds. NEURO: Alert and Oriented X 3. No gross sensory deficits, or cognitive issues. PSYCH: Appropriate affect and mood. Patient History Medical History Basal cell carcinoma (BCC) of skin of face (Resolved 2002) Breast cancer, right (Acute 2017) Cancer of right breast (Chronic ~04/22/17) Chicken pox (Resolved) Colon polyps (Resolved 2002) Diverticulitis (Acute) Diverticulosis of colon (Chronic) Easy bruisability (Chronic) Elevated cholesterol (Chronic) Family history of malignant neoplasm of cervix (09/05/13) 3 para 3 (Resolved) Hemorrhoids (Resolved ~2002) Hepatic cyst (Resolved) Hx of skin cancer, basal cell (Resolved 1976) Hypertension (Chronic 2012) LBBB (left bundle branch block) (Chronic) Mastitis (Resolved 1965) Mastitis, left, acute (Resolved 2016) Measles (Resolved) Menarche (Resolved ~1955) Meningitis (Resolved ~1981) Menopause (Resolved ~1993) Migraine with aura (Chronic ~1957) Mumps (Resolved) Osteoporosis (Chronic) Phlebitis (Resolved 1971) Shingles (Resolved 2016) 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) Surgical History Anesthesia (Resolved) History of arthroplasty of left shoulder (Resolved 2007) History of arthroplasty of right shoulder (Resolved 2006) History of basal cell carcinoma (BCC) excision (Resolved 1996) History of colonoscopy with polypectomy (Resolved 2002) History of lumpectomy of right breast (Resolved 05/08/17) History of orthopedic surgery (Resolved 1980) History of skin graft (Resolved 2013) History of squamous cell carcinoma excision (Resolved) History of surgery of liver (Resolved 1996) History of tubal ligation (Resolved 11/28/71) Hx of hemorrhoidectomy (Resolved 2002) Status post arthroscopy (Resolved 1994) Status post colonoscopy (Resolved 06/20/08) Status post colonoscopy (Resolved 09/26/13) Status post hemorrhoidectomy (Resolved 2002) Family & Social History Family History Father Myocardial infarction Heart disease Son No problems noted. Daughter Migraine Daughter No problems noted. Brother No problems noted. Grandmother Cervical cancer Mother Cervical cancer Social History: household members spouse Tobacco & Substance use: Tobacco type cigarettes Smoking Status Former smoker alcohol intake current Substance Use Type does not use Meds Home Medications and Allergies Home Medications Medication Instructions Recorded Confirmed Type cholecalciferol (vitamin D3) 2,000 unit PO DAILY 07/07/17 04/05/19 History [Vitamin D3] coenzyme Q10 [Co Q-10] 200 mg PO DAILY 07/07/17 04/05/19 History magnesium citrate 250 mg PO DAILY 07/07/17 04/05/19 History multivitamin 1 cap PO DAILY 07/07/17 04/05/19 History omega 0-owk-bdl-fish oil [[place]-3] 1,200 mg PO SEEINSTR 07/07/17 04/05/19 History acetaminophen 500 mg tablet 500 mg PO Q6H PRN 11/11/17 04/05/19 History letrozole [Femara] 2.5 mg PO DAILY #90 tab 03/21/19 04/05/19 Rx losartan 50 mg tablet 50 mg PO BID #180 tab 04/04/19 04/05/19 Rx Allergies Allergy/AdvReac Type Severity Reaction Status Date / Time oxycodone AdvReac Intermediate Hallucinati Verified 04/05/19 13:18 ng adhesive tape AdvReac rash, pt Verified 04/05/19 13:18 requests paper tape Exam Vital Signs (past 8 hours): - 04/05/19 13:22 Temperature 98.2 F Pulse Rate 96 H Respiratory Rate 15 Blood Pressure 149/90 H Pulse Oximetry 100 Oxygen Delivery Method Room Air Assessment & Plan Assessment and plan (1) Personal history of colonic polyps: Current visit: Yes Status: Acute (2) Cancer of right breast: Problem details: T1a N0, ER/FL positive, HER2 negative, 04/2017 lumpectomy positive margins, 07/2017 re-excision, adjuvant radiation, letrozole starting 12/2017 Qualifiers: Breast location: upper inner quadrant of breast Estrogen receptor status: positive Patient sex: female Qualified Code(s): C50.211 - Malignant neoplasm of upper-inner quadrant of right female breast; Z17.0 - Estrogen receptor positive status [ER+] Current visit: No Status: Chronic (3) Migraine with aura: Problem details: 3/year prior to letrozole Current visit: No Status: Chronic (4) Left bundle branch block (LBBB) determined by electrocardiography: Current visit: No Status: Chronic (5) Diverticulosis of large intestine: Current visit: No Status: Chronic (6) Hypertension: Current visit: No Status: Chronic Assessment & Plan narrative: This is a 71-year-old woman here for surveillance colonoscopy. Risks and benefits of screening colonoscopy and possible polypectomy were discussed with the patient including risk of bleeding, perforation, need for additional procedures, risks of anesthesia. The patient desires to proceed with the colonoscopy procedure. Time Spent With Patient Time with patient: 15-24 minutes Quality VTE Deep Vein Thrombosis/Pulmonary Embolism Present on Admission: No
--- NOTE | 2019-04-05 13:39 | PM.OP.ENDO ---
Operative Date/Time/Diagnoses Date of procedure: 04/05/19 Time of procedure: 13:39 Pre-op diagnosis: Personal history of colon polyps Procedure & Clinicians Study performed: Colonoscopy, biopsy of cecal polyp x1 with cold forceps Same procedure as scheduled: Yes Indications: Personal history of colon polyps Surgeon: Rebecca Luke Procedure Notes SCOAP/Timeout: Performed Procedure in detail: The patient was brought to the room and placed in left lateral decubitus position with all bony prominences padded. A time-out was performed and then the patient was given procedural sedation starting with 2 mg of Versed and 100 mcg of fentanyl. A total of 5 mg of Versed and 200 micro g of fentanyl were given for the entire procedure. Vitals were monitored throughout the procedure and remained stable. Once adequately sedated the procedure was begun. A rectal exam was performed revealing no abnormalities. The colonoscope was then introduced to the rectum and advanced to the cecum in the usual fashion. The colon was very tortuous and required multiple maneuvers to reach the cecum safely. The cecum was identified by the appendiceal orifice, the mucosal tri-fold, and the ileocecal valve. There was a heaped up cellular mucosa, which is consistent with either a large flat polyp or lymphoid aggregate. This was biopsied with cold forceps. The scope was then retracted while rotating side to side and examining each mucosal fold. At the conclusion of the procedure retroflexion was performed and small grade 1-2 internal hemorrhoids without stigmata of bleeding were seen. The scope was then withdrawn from the rectum the procedure was concluded. The patient tolerated the procedure well and was transferred to the PACU in stable condition. Scope withdrawal time: 13 Sedation minutes: 29 Findings: diverticulosis and other findings (mucosal abnormality in cecum, possible polyp, possible lymphoid aggregate) Specimen(s): other (cecum biopsy) Complications: none Impression: tortuous colon, possible cecal polyp vs lymphoid aggregate Post-procedure Recommendations: Other recommendation (Follow-up recommendation will depend on biopsy results) Follow up: as needed Disposition: PACU
[2019-04-05] MEDS: fentaNYL 250 MCG/5 ML INJ IV (14:06)
[2019-04-05] MEDS: MIDAZOLAM 5 MG/ML VIAL 4 MG IV (14:06)
[2019-04-05 14:15] VITALS: BP 136/85; PULSE 85; RESP 21; TEMP 36.1; O2SAT 93
[2019-04-05 14:20] VITALS: BP 122/74; PULSE 87; RESP 20; O2SAT 94
[2019-04-05 14:25] VITALS: BP 131/85; PULSE 90; RESP 19; O2SAT 95
[2019-04-05 14:30] VITALS: BP 129/81; PULSE 90; RESP 18; O2SAT 94
== END 2019-04-05 14:46 | disposition home or self-care (01) ==
PROVIDERS: PCP Family Medicine; Referring Provider Family Medicine; Visit Provider Surgery
PROC: 0DJD8ZZ Inspection of Lower Intestinal Tract, Via Natural or Artificial Opening Endoscopic (ICD-10-PCS; CPT 45378; principal; 2019-04-05 13:45)
DX: Z12.11 Encounter for screening for malignant neoplasm of colon (principal); K57.30 Diverticulosis of large intestine without perforation or abscess without bleeding; Z86.010 Personal history of colon polyps; D12.0 Benign neoplasm of cecum
CPT/HCPCS: 45380; 99152; 99153; J2250; J3010

== ENCOUNTER → 2019-07-01 13:14 | Outpatient (CLI) | payer MEDICARE, SELFPAY ==
--- NOTE | 2019-07-01 13:15 | DI.MG.S_ITS ---
BILATERAL DIGITAL SCREENING MAMMOGRAM 3D/2D WITH CAD POST LUMPECTOMY: 07/01/2019 CLINICAL: History of breast cancer. Comparison is made to exams dated: 04/26/2018 mammogram, 04/22/2017 mammogram, and 04/21/2016 mammogram - [facility]. The tissue of both breasts is heterogeneously dense. This may lower the sensitivity of mammography. Current study was also evaluated with a Computer Aided Detection (CAD) system. There are benign post operative findings in the right breast. No significant masses, calcifications, or other findings are seen in either breast. There has been no significant interval change. IMPRESSION: There is no mammographic evidence of malignancy. A 1 year screening mammogram is recommended. This exam was interpreted at Station ID: [id number]. NOTE: For mammograms, a report in lay terms will be sent to the patient. Approximately 15% of breast malignancies will not be visualized mammographically. In the management of a palpable breast mass, a negative mammogram must not discourage biopsy of a clinically suspicious lesion. Electronically Signed By: Shana rodrigues/harriet:07/01/2019 14:59:38 letter sent: Normal Exam ACR BI-RADS Category 2: Benign Finding(s) 3342F
== END ==
PROVIDERS: PCP Family Medicine; Referring Provider Family Medicine; Visit Provider Family Medicine
DX: Z12.31 Encounter for screening mammogram for malignant neoplasm of breast (principal); Z85.3 Personal history of malignant neoplasm of breast
CPT/HCPCS: 77063; 77067

== ENCOUNTER → 2019-08-21 13:27 | Outpatient (CLI) | payer MEDICARE, SELFPAY ==
[2019-08-22 07:52] LABS: COVID19 Sendout Not Detected (Not Detect)
== END ==
PROVIDERS: PCP Family Medicine; Visit Provider Physician Assistant
DX: Z01.818 Encounter for other preprocedural examination (principal)
CPT/HCPCS: 87635

== ENCOUNTER 2019-08-24 07:46 | Day surgery (SDC) | payer MEDICARE, SELFPAY ==
--- NOTE | 2019-08-24 | PATH_ITS ---
[facility] Accession Number: [id number] . 01 Material submitted: . colon - CECAL POLYP . 02 Diagnosis: Cecum, Polyp, Biopsy: Sessile serrated adenoma. MRV 08/25/2019 1403 Local . 02 Electronically signed: . Stacie Ybarra MD, Pathologist NPI- [id number] . 01 Gross description: . CECAL POLYP: Received in formalin is 1 fragment(s) of garcia, soft tissue measuring 0.5 x 0.5 x 0.3 cm submitted entirely in 1 cassette(s) /QBJ 08/25/2019 0154 Local . 02 Pathologist provided ICD-10: D12.0 . 02 CPT . 082697 Performed at: 01 [facility] [address] [id number] MD Obed Calvillo MD Phone: [phone] Performed at: 02 [facility] [place] [address] [place], [place] [id number] MD Stacie Ybarra MD Phone: [phone]
[2019-08-24 08:04] VITALS: BP 167/93; PULSE 91; RESP 18; TEMP 36.8; O2SAT 97; BMI 25.0
--- NOTE | 2019-08-24 09:07 | PM.HP.1 ---
History of Present Illness History of Present Illness Date Patient Seen: 08/24/19 Time Patient Seen: 09:07 Chief complaint: [id number] Narrative: Large cecal polyp to be removed. Patient History Medical History (Updated 07/26/19 @ 17:01 by Ike Guerrero MD) Basal cell carcinoma (BCC) of skin of face (Resolved 2002) Breast cancer, right (Acute 2018) Cancer of right breast (Chronic ~04/22/17) Chicken pox (Resolved) Colon polyps (Resolved 2002) Diverticulitis (Acute) Diverticulosis of colon (Chronic) Easy bruisability (Chronic) Elevated cholesterol (Chronic) Family history of malignant neoplasm of cervix (09/05/13) 3 para 3 (Resolved) Hemorrhoids (Resolved ~2002) Hepatic cyst (Resolved) Hx of skin cancer, basal cell (Resolved 1976) Hypertension (Chronic 2012) LBBB (left bundle branch block) (Chronic) Mastitis (Resolved 1965) Mastitis, left, acute (Resolved 2016) Measles (Resolved) Menarche (Resolved ~1955) Meningitis (Resolved ~1981) Menopause (Resolved ~1993) Migraine with aura (Chronic ~1957) Mumps (Resolved) Osteoporosis (Chronic) Phlebitis (Resolved 1971) Shingles (Resolved 2016) 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) Surgical History Anesthesia (Resolved) History of arthroplasty of left shoulder (Resolved 2007) History of arthroplasty of right shoulder (Resolved 2006) History of basal cell carcinoma (BCC) excision (Resolved 1996) History of colonoscopy with polypectomy (Resolved 2002) History of lumpectomy of right breast (Resolved 05/08/17) History of orthopedic surgery (Resolved 1980) History of skin graft (Resolved 2013) History of squamous cell carcinoma excision (Resolved) History of surgery of liver (Resolved 1996) History of tubal ligation (Resolved 11/28/71) Hx of hemorrhoidectomy (Resolved 2002) Status post arthroscopy (Resolved 1994) Status post colonoscopy (Resolved 06/20/08) Status post colonoscopy (Resolved 09/26/13) Status post hemorrhoidectomy (Resolved 2002) Family & Social History Family History Father Myocardial infarction Heart disease Son No problems noted. Daughter Migraine Daughter No problems noted. Brother No problems noted. Grandmother Cervical cancer Mother Cervical cancer Social History: household members spouse Tobacco & Substance use: Tobacco type cigarettes Smoking Status Former smoker alcohol intake current alcohol intake frequency holiday/special occasion Substance Use Type does not use Meds Home Medications and Allergies Home Medications Medication Instructions Recorded Confirmed Type [facility]-3 1,200 mg PO SEEINSTR 07/07/17 08/24/19 History cholecalciferol (vitamin D3) 2,000 unit PO DAILY 07/07/17 08/24/19 History [Vitamin D3] coenzyme Q10 [Co Q-10] 200 mg PO DAILY 07/07/17 08/24/19 History magnesium citrate 250 mg PO DAILY 07/07/17 08/24/19 History multivitamin 1 cap PO DAILY 07/07/17 08/24/19 History acetaminophen 500 mg tablet 500 mg PO Q6H PRN 11/11/17 08/24/19 History letrozole [Femara] 2.5 mg PO DAILY #90 tab 03/21/19 08/24/19 Rx losartan 50 mg tablet 50 mg PO BID #180 tab 04/04/19 08/24/19 Rx Allergies Allergy/AdvReac Type Severity Reaction Status Date / Time oxycodone AdvReac Intermediate Hallucinati Verified 08/24/19 08:02 ng adhesive tape AdvReac rash, pt Verified 08/24/19 08:02 requests paper tape Exam Vital Signs (past 8 hours): - 08/24/19 08:04 Temperature 98.3 F Pulse Rate 91 H Respiratory Rate 18 Blood Pressure 167/93 H Pulse Oximetry 97 Oxygen Delivery Method Room Air Narrative Exam Narrative: Oropharynx free of lesions Chest clear to auscultation percussion Cardiac exam reveals a 2 to 3/6 systolic murmur at the lower left sternal border which varies in intensity depending on position and Valsalva. Assessment & Plan Assessment & Plan narrative: Large residual cecal sessile serrated adenoma. Need for removal. Risks, benefits, alternatives have been explained.
--- NOTE | 2019-08-24 09:09 | PM.OP.ENDO ---
Operative Date/Time/Diagnoses Date of procedure: 08/24/19 Time of procedure: 09:09 Pre-op diagnosis: See indication and findings Procedure & Clinicians Study performed: Colonoscopy with polypectomy Indications: Large cecal sessile serrated adenoma due for removal Surgeon: Rodger Muro Procedure Notes Procedure in detail: After informed consent was obtained the patient was placed in left lateral decubitus position. The video colonoscope was introduced the rectum slowly advanced to the cecum. Preparation was good. On slow withdrawal mucosa was carefully examined. The scope was removed. The patient tolerated procedure well. Blood loss none Complications none Sedation Total sedation time 23 minutes Fentanyl 100 mg versed 5 mg IV titration Findings 1. Extensive sigmoid diverticulosis 2. Somewhat indistinct 12 mm polyp adjacent to the appendiceal orifice. Endoscopic mucosal resection was performed. This was done by injecting the base with 3 cc of normal saline and then using a small snare on the ERBE Endo cut settings. The polyp was retrieved. There may have been mild incomplete resection and therefore the APC was used to touch up the edges of the polypectomy site. Will be in touch regarding the findings from pathology. She will need follow-up colonoscopy in 1 year.
[2019-08-24] MEDS: SODIUM CHLORIDE 0.9% 1,000 ML 84 ML IV (09:10)
[2019-08-24] MEDS: MIDAZOLAM 5 MG/5 ML VIAL IV ×4 (09:11→09:14)
[2019-08-24] MEDS: ONDANSETRON 4 MG/2 ML INJ IV (09:11)
[2019-08-24] MEDS: fentaNYL 250 MCG/5 ML INJ IV (09:11)
[2019-08-24 09:40] VITALS: BP 110/70; PULSE 80; RESP 13; TEMP 36.6; O2SAT 93
[2019-08-24 09:45] VITALS: BP 121/77; PULSE 79; RESP 16; O2SAT 94
[2019-08-24 09:50] VITALS: BP 123/76; PULSE 81; RESP 15; O2SAT 94
[2019-08-24 09:55] VITALS: BP 98/69; PULSE 88; RESP 15; TEMP 36.1; O2SAT 99
== END 2019-08-24 10:10 | disposition home or self-care (01) ==
PROVIDERS: PCP Family Medicine; Referring Provider Internal Medicine Gastroenterology; Visit Provider Internal Medicine Gastroenterology
PROC: 0DJD8ZZ Inspection of Lower Intestinal Tract, Via Natural or Artificial Opening Endoscopic (ICD-10-PCS; CPT 45378; principal; 2019-08-24 09:00)
DX: D12.0 Benign neoplasm of cecum (principal); K57.30 Diverticulosis of large intestine without perforation or abscess without bleeding; I45.10 Unspecified right bundle-branch block; E78.00 Pure hypercholesterolemia, unspecified; I10 Essential (primary) hypertension
CPT/HCPCS: 45390; J2250; J2405; J3010

== ENCOUNTER → 2019-10-28 07:52 | Outpatient (CLI) | payer MEDICARE, SELFPAY ==
--- NOTE | 2019-10-28 | DI.ECHO.S_ITS ---
[place] +---------+ Hospital +---------+ : : [address] : : : : [id number] : : : : Phone: [phone]+ Echocardiogram Report + + :Name: JUSTINA LAWRENCE Study Date: 10/28/2019 Height: 64 in : :[facility] Weight: 222 lb : : Gender: Female BSA: 2.0 m2 : :: 1940 Age: 79 yrs BP: 133/85 mmHg: : Performed By: Brendon Nelson : :Referring: FLOYD WADE : + + Interpretation Summary The left ventricle is normal in size. The ejection fraction is estimated to be 60-65%. There has been no significant change in LV EF since the previous exam. The right ventricle is normal in size and function. No significant valvular pathology seen. A large hepatic cyst measuring approximately 9.7 cm x 9.6 cm is noted. In 02/2014, hepatic cyst measuring approximately 6.1 cm by 5.0 cm was noted. Procedure: A two-dimensional transthoracic echocardiogram with color flow and Doppler was performed. The study quality was technically adequate. Comparison is made with the echocardiogram of 02/13/14. The subcostal views were difficult to obtain and are suboptimal in quality. The patient had occasional PACs during the exam. The patient had a bundle branch block rhythm during the exam. The patient was in normal sinus rhythm during the exam. Left Ventricle: The left ventricle is normal in size. There is normal left ventricular wall thickness. There is no thrombus. The ejection fraction is estimated to be 60-65%. There has been no significant change since the previous exam. Septal motion is consistent with conduction abnormality. MV E/A: 0.42 Med Peak E' Pepito: 2.5 cm/sec E/E' med: 16.3. Right Ventricle: The right ventricle is normal in size and function. Atria: The left atrial size is normal. Both atria have remained unchanged in size since the prior echo exam. Right atrial size is normal. The interatrial septum is intact with no evidence for an atrial septal defect. Mitral Valve: There is mild mitral annular calcification. There is mild mitral regurgitation. Compared to the prior echo study, there has been no change in the severity of mitral regurgitation. Aortic Valve: The aortic valve is normal in structure and function. There is mild aortic valve sclerosis. There is no aortic valve stenosis. No aortic regurgitation is present. Tricuspid Valve: The tricuspid valve is normal in structure and function. There is trace tricuspid regurgitation. Pulmonary artery pressures cannot be estimated because of the lack of a measurable TR jet velocity. Pulmonic Valve: The pulmonic valve is not well seen, but is grossly normal. There is trace pulmonic regurgitation. Great Vessels: The aortic root is normal size. The dimensions of the ascending aorta are normal. The pulmonary artery is normal size. The inferior vena cava was not visualized. Pericardium/ Pleura There is no pericardial effusion. There is no pleural effusion. A large hepatic cyst measuring approximately 9.7 cm x 9.6 cm is noted. MMode/2D Measurements & Calculations LVIDd: 5.0 cm LVOT diam: 2.0 cm LVIDs: 3.2 cm Ao root diam: 2.5 cm FS: 35.7 % asc Aorta Diam: 3.2 cm EPSS: 0.37 cm Ao Arch Diam (Prox Trans): 2.3 cm IVSd: 0.98 cm LVPWd: 0.92 cm LV shepard. diameter/BSA (cm/m^2): 2.4 LV sys. diameter/BSA (cm/m^2): 1.6 LA dimension: 3.6 cm RA long axis: 4.4 cm LA A2 area: 15.9 cm2 RA area: 13.7 cm2 LA A4 area: 17.4 cm2 RA vol: 36.3 ml LA length (vol): 5.0 cm RA : 17.7 ml/m2 LA vol: 47.1 ml LA vol index: 23.0 ml/m2 Doppler Measurements & Calculations Ao V2 max: 157.4 cm/sec LVOT Max Pepito: 98.5 cm/sec Ao V2 mean: 129.8 cm/sec LV V1 max P.9 mmHg Ao max P.9 mmHg LV V1 VTI: 20.1 cm Ao mean P.0 mmHg RAJ(I,D): 2.0 cm2 Ao V2 VTI: 31.6 cm RAJ(V,D): 2.0 cm2 sev ratio: 0.63 RAJ indexed to BSA (cm^2/m^2): 0.99 MV E max pepito: 41.2 cm/sec PA V2 max: 77.0 cm/sec MV A max pepito: 98.5 cm/sec PA V2 mean: 53.6 cm/sec MV E/A: 0.42 PA mean P.2 mmHg Med Peak E' Pepito: 2.5 cm/sec PA pr(Accel): 41.3 mmHg E/E' med: 16.3 Lat Peak E' Pepito: 3.8 cm/sec E/E' lat: 10.9 E/e' average: 13.6 MV dec time: 0.19 sec SVLVOT): 63.7 ml Reading Physician:09:32 AM
== END ==
PROVIDERS: PCP Family Medicine; Referring Provider Internal Medicine Cardiovascular Disease; Visit Provider Internal Medicine Cardiovascular Disease
DX: I34.0 Nonrheumatic mitral (valve) insufficiency (principal); R01.1 Cardiac murmur, unspecified; K76.89 Other specified diseases of liver
CPT/HCPCS: 93306

== ENCOUNTER → 2019-12-26 08:08 | Outpatient (CLI) | payer MEDICARE, SELFPAY ==
[2019-12-26 08:49] LABS: Add Manual Diff / Slide Review NO; Basophils Absolute Auto 0 /uL (0-100); Basophils Percent Auto 0.9 % (0-2); Eosinophils Absolute Auto 100 /uL (0-450); Hematocrit 45.4 % (36-46); Hemoglobin 15.4 g/dL (12.0-16.0); Lymphocytes Absolute Auto 800 /uL (1100-4500); Lymphocytes Percent Auto 16.1 % (25-40); Mean Corpuscular HGB Conc 33.9 % (30-36); Mean Corpuscular Hemoglobin 30.8 PG (26-34); Mean Corpuscular Volume 90.9 fL (80-100); Monocytes Absolute Auto 400 /uL (0-900); Monocytes Percent Auto 8.5 % (3-14); Neutrophils Absolute Auto 3700 /uL (1500-7000); Neutrophils Percent Auto 72.5 % (50-75); Platelet Count 276 X10^3/uL (150-400); Red Blood Cell Count 4.99 X10^6/uL (4.0-5.2); Red Cell Distribution Width 13.7 % (11.6-14.8); White Blood Cell Count 5.2 X10^3/uL (4.5-11.0)
[2019-12-26 09:44] LABS: Alanine Aminotransferase 17 IU/L (<35); Albumin 4.4 g/dL (3.5-5.0); Albumin Globulin Ratio 1.4 (1.0-2.8); Alkaline Phosphatase 83 U/L (38-126); Aspartate Aminotransferase 28 IU/L (14-36); BUN Creatinine Ratio 17.1 (6-22); Bilirubin Total 0.8 mg/dL (0.2-1.3); Blood Urea Nitrogen 14 mg/dL (7-17); Calcium 9.5 mg/dL (8.4-10.2); Carbon Dioxide 29 mmol/L (22-32); Chloride 102 mmol/L (98-107); Cholesterol 323 mg/dL (140-199); Estimated Glomerular Filt Rate > 60.0 mL/min (>60); Globulin 3.1 g/dL (1.7-4.1); Glucose 102 mg/dL (80-110); HDL Cholesterol 63 mg/dL (40-60); HEMOLYSIS 16 (0-50); LDL Cholesterol Calculated 220 mg/dL (<100); Potassium 4.2 mmol/L (3.4-5.1); Sodium 137 mmol/L (137-145); Total Protein 7.5 g/dL (6.3-8.2); Triglycerides 201 mg/dL (35-150)
== END ==
PROVIDERS: PCP Family Medicine; Referring Provider Family Medicine; Visit Provider Family Medicine
DX: E78.5 Hyperlipidemia, unspecified (principal); I10 Essential (primary) hypertension
CPT/HCPCS: 36415; 80053; 80061; 85025

== ENCOUNTER → 2020-07-04 11:55 | Outpatient (CLI) | payer MEDICARE, SELFPAY ==
--- NOTE | 2020-07-04 11:58 | DI.RAD.S_ITS ---
PROCEDURE: XR DEXA AXIAL SKELETON INDICATIONS: Monitoring on aromatase inhibitor therapy, COMPARISON: [facility], CR, XR DEXA AXIAL SKELETON, 08/25/2017, 14:03. FINDINGS: This blank DEXA report has been sent in error by the PACS system. The correct and complete report will be forthcoming in 1-2 days. Thank you for your patience and understanding. Dictated by: Cary Herndon MD, PhD on 07/05/2020 at 7:01 Approved by: Cary Herndon MD, PhD on 07/05/2020 at 7:01
--- NOTE | 2020-07-04 11:58 | DI.MG.S_ITS ---
BILATERAL DIGITAL SCREENING MAMMOGRAM 3D/2D WITH CAD: 07/04/2020 CLINICAL: Routine screening. Breast cancer. Comparison is made to exams dated: 07/01/2019 mammogram, 04/26/2018 mammogram, and 07/08/2017 mammogram - [facility]. The tissue of both breasts is heterogeneously dense. This may lower the sensitivity of mammography. Current study was also evaluated with a Computer Aided Detection (CAD) system. There are benign post operative findings in the right breast. No significant masses, calcifications, or other findings are seen in either breast. There has been no significant interval change. IMPRESSION: BENIGN There is no mammographic evidence of malignancy. A 1 year screening mammogram is recommended. This exam was interpreted at Station ID: [id number]. NOTE: For mammograms, a report in lay terms will be sent to the patient. Approximately 15% of breast malignancies will not be visualized mammographically. In the management of a palpable breast mass, a negative mammogram must not discourage biopsy of a clinically suspicious lesion. Electronically Signed By: Shana rodrigues/harriet:07/04/2020 16:58:10 copy to: Shruthi Leonard letter sent: Normal Exam ACR BI-RADS Category 2: Benign Finding(s) 3342F
== END ==
PROVIDERS: PCP Family Medicine; Referring Provider Internal Medicine; Visit Provider Internal Medicine
DX: M81.0 Age-related osteoporosis without current pathological fracture (principal); Z12.31 Encounter for screening mammogram for malignant neoplasm of breast; Z78.0 Asymptomatic menopausal state; C50.911 Malignant neoplasm of unspecified site of right female breast
CPT/HCPCS: 77063; 77067; 77080

== ENCOUNTER → 2021-07-10 13:08 | Outpatient (CLI) | payer MEDICARE, SELFPAY ==
--- NOTE | 2021-07-10 | DI.MG.S_ITS ---
BILATERAL DIGITAL SCREENING MAMMOGRAM 3D/2D WITH CAD POST LUMPECTOMY: 07/10/2021 CLINICAL: Routine screening. Personal history of right breast cancer. Comparison is made to exams dated: 07/04/2020 mammogram, 07/01/2019 mammogram, and 04/26/2018 mammogram - [facility]. The tissue of both breasts is heterogeneously dense. This may lower the sensitivity of mammography. Current study was also evaluated with a Computer Aided Detection (CAD) system. There are benign post operative findings in the right breast. No significant masses, calcifications, or other findings are seen in either breast. There has been no significant interval change. IMPRESSION: BENIGN There is no mammographic evidence of malignancy. A 1 year screening mammogram is recommended. This exam was interpreted at Station ID: [id number]. NOTE: For mammograms, a report in lay terms will be sent to the patient. Approximately 15% of breast malignancies will not be visualized mammographically. In the management of a palpable breast mass, a negative mammogram must not discourage biopsy of a clinically suspicious lesion. Electronically Signed By: Kwesi Bliss acr/penrad:07/10/2021 13:58:06 copy to: Shruthi Leonard letter sent: Normal Exam ACR BI-RADS Category 2: Benign Finding(s) 3342F
== END ==
PROVIDERS: PCP Family Medicine; Referring Provider Internal Medicine Medical Oncology; Visit Provider Internal Medicine Medical Oncology
DX: Z12.31 Encounter for screening mammogram for malignant neoplasm of breast (principal)
CPT/HCPCS: 77063; 77067

== ENCOUNTER → 2021-07-17 08:22 | Outpatient (CLI) | payer MEDICARE, SELFPAY ==
[2021-07-17 11:41] LABS: Alanine Aminotransferase 19 IU/L (<35); Albumin 4.5 g/dL (3.5-5.0); Albumin Globulin Ratio 1.6 (1.0-2.8); Alkaline Phosphatase 73 U/L (38-126); Aspartate Aminotransferase 34 IU/L (14-36); BUN Creatinine Ratio 14.9 (6-22); Bilirubin Total 0.7 mg/dL (0.2-1.3); Blood Urea Nitrogen 13 mg/dL (7-17); Calcium 9.4 mg/dL (8.4-10.2); Carbon Dioxide 27 mmol/L (22-32); Chloride 105 mmol/L (98-107); Cholesterol 211 mg/dL (140-199); Estimated Glomerular Filt Rate > 60 mL/min (>60); Globulin 2.9 g/dL (1.7-4.1); Glucose 91 mg/dL (80-110); HDL Cholesterol 63 mg/dL (40-60); HEMOLYSIS < 15 (0-50); LDL Cholesterol Calculated 119 mg/dL (<100); Potassium 4.2 mmol/L (3.4-5.1); Sodium 140 mmol/L (137-145); Total Protein 7.4 g/dL (6.3-8.2); Triglycerides 143 mg/dL (35-150)
== END ==
PROVIDERS: PCP Family Medicine; Referring Provider Internal Medicine Cardiovascular Disease; Visit Provider Internal Medicine Cardiovascular Disease
DX: E78.5 Hyperlipidemia, unspecified (principal)
CPT/HCPCS: 36415; 80053; 80061

== ENCOUNTER → 2022-07-24 13:45 | Outpatient (CLI) | payer MEDICARE, SELFPAY ==
--- NOTE | 2022-07-24 | DI.MG.S_ITS ---
BILATERAL DIGITAL SCREENING MAMMOGRAM 3D/2D WITH CAD: 07/24/2022 CLINICAL: Routine screening. Personal history of right breast cancer. Comparison is made to exams dated: 07/10/2021 mammogram, 07/04/2020 mammogram, 07/01/2019 mammogram, and 04/22/2017 mammogram - [facility]. Both breasts are heterogeneously dense, which may obscure small masses (category c / 51-75% glandular tissue). Current study was also evaluated with a Computer Aided Detection (CAD) system. There are benign post operative findings in the right breast. No significant masses, calcifications, or other findings are seen in either breast. There has been no significant interval change. IMPRESSION: BENIGN There is no mammographic evidence of malignancy. A 1 year screening mammogram is recommended. This exam was interpreted at Station ID: [id number]. NOTE: For mammograms, a report in lay terms will be sent to the patient. Approximately 15% of breast malignancies will not be visualized mammographically. In the management of a palpable breast mass, a negative mammogram must not discourage biopsy of a clinically suspicious lesion. Electronically Signed By: Lavell barron/penshell:07/24/2022 15:09:50 copy to: Shruthi Leonard letter sent: Normal Exam ACR BI-RADS Category 2: Benign Finding(s) 3342F
== END ==
PROVIDERS: PCP Family Medicine; Referring Provider Family Medicine; Visit Provider Family Medicine
DX: Z12.31 Encounter for screening mammogram for malignant neoplasm of breast (principal); Z85.3 Personal history of malignant neoplasm of breast
CPT/HCPCS: 77063; 77067

== ENCOUNTER → 2022-07-30 09:04 | Outpatient (CLI) | payer MEDICARE, SELFPAY ==
[2022-07-30 10:20] LABS: Add Manual Diff / Slide Review NO; Basophils Absolute Auto 0 /uL (0-100); Basophils Percent Auto 0.9 % (0-2); Eosinophils Absolute Auto 100 /uL (0-450); Eosinophils Percent Auto 2.3 % (2-4); Hematocrit 42.9 % (36-46); Hemoglobin 14.7 g/dL (12.0-16.0); Lymphocytes Absolute Auto 900 /uL (1100-4500); Lymphocytes Percent Auto 17.4 % (25-40); Mean Corpuscular HGB Conc 34.1 % (30-36); Mean Corpuscular Hemoglobin 30.6 PG (26-34); Mean Corpuscular Volume 89.6 fL (80-100); Monocytes Absolute Auto 500 /uL (0-900); Monocytes Percent Auto 8.6 % (3-14); Neutrophils Absolute Auto 3700 /uL (1500-7000); Neutrophils Percent Auto 70.8 % (50-75); Platelet Count 269 X10^3/uL (150-400); Red Blood Cell Count 4.79 X10^6/uL (4.0-5.2); Red Cell Distribution Width 13.4 % (11.6-14.8); White Blood Cell Count 5.3 X10^3/uL (4.5-11.0)
[2022-07-30 11:03] LABS: BUN Creatinine Ratio 16.4 (6-22); Blood Urea Nitrogen 12 mg/dL (7-17); Calcium 9.4 mg/dL (8.4-10.2); Carbon Dioxide 25 mmol/L (22-32); Chloride 104 mmol/L (98-107); Estimated Glomerular Filt Rate > 60 mL/min (>60); Glucose 89 mg/dL (80-110); HEMOLYSIS < 15 (0-50); Potassium 4.4 mmol/L (3.4-5.1); Sodium 138 mmol/L (137-145)
== END ==
PROVIDERS: PCP Family Medicine; Referring Provider Family Medicine; Visit Provider Family Medicine
DX: I10 Essential (primary) hypertension (principal); E55.9 Vitamin D deficiency, unspecified; E78.5 Hyperlipidemia, unspecified
CPT/HCPCS: 36415; 80048; 85025

== ENCOUNTER → 2022-08-19 09:05 | Outpatient (CLI) | payer MEDICARE, SELFPAY ==
[2022-08-19 11:20] LABS: Creatinine Urine Random 79.9 mg/dL
[2022-08-19 11:22] LABS: Microalbumin Urine Random 0.8 mg/dL (0-1.6)
== END ==
PROVIDERS: PCP Family Medicine; Referring Provider Family Medicine; Visit Provider Family Medicine
DX: I10 Essential (primary) hypertension (principal)
CPT/HCPCS: 82043; 82570

== ENCOUNTER → 2022-11-04 09:07 | Outpatient (CLI) | payer MEDICARE, SELFPAY ==
[2022-11-04 10:48] LABS: Add Manual Diff / Slide Review NO; Basophils Absolute Auto 0 /uL (0-100); Basophils Percent Auto 0.7 % (0-2); Eosinophils Absolute Auto 300 /uL (0-450); Eosinophils Percent Auto 3.6 % (2-4); Hematocrit 41.9 % (36-46); Hemoglobin 14.4 g/dL (12.0-16.0); Lymphocytes Absolute Auto 1000 /uL (1100-4500); Lymphocytes Percent Auto 13.7 % (25-40); Mean Corpuscular HGB Conc 34.4 % (30-36); Mean Corpuscular Hemoglobin 30.8 PG (26-34); Mean Corpuscular Volume 89.5 fL (80-100); Monocytes Absolute Auto 500 /uL (0-900); Monocytes Percent Auto 6.9 % (3-14); Neutrophils Absolute Auto 5200 /uL (1500-7000); Neutrophils Percent Auto 75.1 % (50-75); Platelet Count 298 X10^3/uL (150-400); Red Blood Cell Count 4.68 X10^6/uL (4.0-5.2); Red Cell Distribution Width 13.9 % (11.6-14.8)
[2022-11-04 11:09] LABS: BUN Creatinine Ratio 17.6 (6-22); Blood Urea Nitrogen 16 mg/dL (7-17); Carbon Dioxide 26 mmol/L (22-32); Chloride 102 mmol/L (98-107); Estimated Glomerular Filt Rate > 60 mL/min (>60); Glucose 109 mg/dL (80-110); HEMOLYSIS < 15 (0-50); Potassium 4.8 mmol/L (3.4-5.1); Sodium 138 mmol/L (137-145)
== END ==
PROVIDERS: PCP Family Medicine; Referring Provider Internal Medicine Cardiovascular Disease; Visit Provider Internal Medicine Cardiovascular Disease
DX: I50.21 Acute systolic (congestive) heart failure (principal)
CPT/HCPCS: 36415; 80048; 85025

== ENCOUNTER → 2023-03-09 12:29 | Outpatient (CLI) | payer MEDICARE, SELFPAY ==
--- NOTE | 2023-03-09 | DI.ECHO.S_ITS ---
[place] +---------+ Hospital +---------+ : : [address] : : : : [id number] : : : : Phone: [phone]---------+ Echocardiogram Report + + :Name: JUSTINA LAWRENCE Study Date: 03/09/2023 Height: 64 in : :[facility] ReadingLocation: Weight: 142 lb : : Gender: Female BSA: 1.7 m2 : :: 1940 Age: 82 yrs BP: 141/79 mmHg: :Reason For Study: ACUTE SYSTOLIC HEART FAILURE : :Ordering Physician: MARUO, : :FLOYD Performed By: Natali Kohler : :Referring: FLOYD WADE : + + Interpretation Summary The left ventricle is normal in size. The left ventricular ejection fraction is normal. The ejection fraction is estimated to be 60-65%. No significant change in LV EF from the previous study. The right ventricle is normal in size and function. Mild MR without any significant change from the previous study. Liver cyst seen. 5.9 x 7.5 cm. In October 28, 2019 9.7 x 9.6 cm. In February 2014 6.1 x 5.0 cm. Procedure: The study quality was technically limited. The study quality was technically adequate. Comparison is made with the echocardiogram of 10/28/2019. The patient was in sinus bradycardia with heart rates between 57- 70 bpm during the exam. Left Ventricle: The left ventricle is normal in size. Proximal septal thickening is noted. There is no thrombus. The ejection fraction is estimated to be 60-65%. The left ventricular ejection fraction is normal. There are no focal wall motion abnormalities. Right Ventricle: The right ventricle is normal in size and function. Atria: The left atrial size is normal. There has been no significant change since the previous study. Mitral Valve: There is mild mitral annular calcification. There is mild mitral regurgitation. Compared to the prior echo study, there has been no change in the severity of mitral regurgitation. Aortic Valve: The aortic valve is trileaflet. The aortic valve opens well. There is mild aortic valve sclerosis. There is no aortic valve stenosis. Tricuspid Valve: The tricuspid valve is normal in structure and function. Right ventricular systolic pressure is estimated to be 20 mmHg plus the clinically estimated CVP which cannot be estimated on this exam. There is trace tricuspid regurgitation. There has been no significant change since the previous study. Great Vessels: The inferior vena cava was not visualized. Pericardium/ Pleura There is no pericardial effusion. Liver cyst seen. There is no pleural effusion. MMode/2D Measurements & Calculations LVIDd: 4.2 cm LA A2 area: 20.7 cm2 LVIDs: 2.7 cm LA A4 area: 13.9 cm2 FS: 36.0 % LA length (vol): 4.7 cm IVSd: 1.00 cm LA vol: 52.3 ml LVPWd: 1.1 cm LA vol index: 30.9 ml/m2 LV shepard. diameter/BSA (cm/m^2): 2.5 LV sys. diameter/BSA (cm/m^2): 1.6 TAPSE: 2.5 cm Doppler Measurements & Calculations MV E max pepito: 50.2 cm/sec TR max pepito: 223.3 cm/sec MV A max pepito: 54.3 cm/sec TR max P.9 mmHg MV E/A: 0.92 Med Peak E' Pepito: 5.9 cm/sec E/E' med: 8.6 Lat Peak E' Pepito: 9.3 cm/sec E/E' lat: 5.4 E/e' average: 7.0 MV dec time: 0.28 sec Reading Physician:05:15 PM
== END ==
LOC: ECHO 12:31
PROVIDERS: PCP Family Medicine; Referring Provider Internal Medicine Cardiovascular Disease; Visit Provider Internal Medicine Cardiovascular Disease
DX: I08.0 Rheumatic disorders of both mitral and aortic valves (principal); I51.81 Takotsubo syndrome; I50.21 Acute systolic (congestive) heart failure; K76.89 Other specified diseases of liver
CPT/HCPCS: 93307

== ENCOUNTER → 2023-07-27 14:35 | Outpatient (CLI) | payer MEDICARE, SELFPAY ==
--- NOTE | 2023-07-27 14:37 | DI.MG.S_ITS ---
BILATERAL DIGITAL SCREENING MAMMOGRAM 3D/2D WITH CAD: 07/27/2023 CLINICAL: Routine screening. Personal history of right breast cancer. Comparison is made to exams dated: 07/24/2022 mammogram, 07/10/2021 mammogram, and 07/04/2020 mammogram - [facility]. Both breasts are heterogeneously dense, which may obscure small masses (category c / 51-75% glandular tissue). Current study was also evaluated with a Computer Aided Detection (CAD) system. There are benign post operative findings in the right breast. No significant masses, calcifications, or other findings are seen in either breast. There has been no significant interval change. IMPRESSION: BENIGN There is no mammographic evidence of malignancy. A 1 year screening mammogram is recommended. This exam was interpreted at Station ID: [id number]. NOTE: For mammograms, a report in lay terms will be sent to the patient. Approximately 15% of breast malignancies will not be visualized mammographically. In the management of a palpable breast mass, a negative mammogram must not discourage biopsy of a clinically suspicious lesion. Electronically Signed By: Rich barboza/harriet:07/28/2023 08:12:06 letter sent: Normal Exam ACR BI-RADS Category 2: Benign Finding(s) 3342F
== END ==
PROVIDERS: PCP Family Medicine; Referring Provider Family Medicine; Visit Provider Family Medicine
DX: Z12.31 Encounter for screening mammogram for malignant neoplasm of breast (principal); Z85.3 Personal history of malignant neoplasm of breast; R92.333 Mammographic heterogeneous density, bilateral breasts
CPT/HCPCS: 77063; 77067

== ENCOUNTER → 2024-08-02 12:47 | Outpatient (CLI) | payer MEDICARE, SELFPAY ==
--- NOTE | 2024-08-02 12:50 | DI.MG.S_ITS ---
MM screening mammo BI: 08/02/2024. BI-RADS: 2 CLINICAL: 84-year old female for bilateral screening mammogram. No Tyrer-Cuzick risk score calculation due to the patient's personal history of breast cancer. Patient reports a history of right breast carcinoma diagnosed at age 77. Status-post right lumpectomy with radiation therapy and hormonal therapy. No first-degree family history of breast cancer. The patient had a prior right breast biopsy. PRIOR EXAMS 07/27/2023, 07/24/2022, 07/10/2021, 07/04/2020. MAMMOGRAPHY TECHNIQUE: 2D and 3D (tomosynthesis) digital mammographic views obtained, with additional images as needed for full coverage. Current study was also evaluated with a Computer Aided Detection (CAD) system. DENSITY C. The breasts are heterogeneously dense, which may obscure small masses. MAMMOGRAPHY FINDINGS Right: Benign-appearing post-surgical changes noted on the right. There are no suspicious masses, calcifications, or other findings in the breast. Left: No suspicious mass, asymmetry, microcalcification, or other abnormality seen. IMPRESSION: Right * No evidence of malignancy with benign findings. Left * No evidence of malignancy. RECOMMENDATIONS Bilateral * Annual screening mammography. OVERALL ASSESSMENT CATEGORY BI-RADS-2: Benign. The [employer] recommends annual screening mammography beginning at age 40 for women with average risk of breast cancer. ELECTRONICALLY SIGNED: Harinder Ferreira M.D. on 08/02/2024 at 03:22:58 PM PT Interpreting Station ID: [id number]
== END ==
PROVIDERS: PCP Family Medicine; Referring Provider Family Medicine; Visit Provider Family Medicine
DX: Z12.31 Encounter for screening mammogram for malignant neoplasm of breast (principal); Z85.3 Personal history of malignant neoplasm of breast; R92.333 Mammographic heterogeneous density, bilateral breasts
CPT/HCPCS: 77063; 77067